=== PATIENT | male | born 1995 | race Hispanic/Latino ===

== ENCOUNTER 2018-01-26 20:00 | Emergency (ER) | payer SELFPAY ==
[2018-01-26] MEDS ORDERED: IBUPROFEN 200 MG TAB ONE (20:18)
[2018-01-26] MEDS ORDERED: IBUPROFEN 400 MG TABLET ONE (20:18)
== END 2018-01-26 21:09 | disposition home or self-care (01) ==
LOC: EDH 20:00
DX: K40.90 Unilateral inguinal hernia, without obstruction or gangrene, not specified as recurrent (principal); Z90.49 Acquired absence of other specified parts of digestive tract; Z72.0 Tobacco use
CPT/HCPCS: 76870

== ENCOUNTER 2021-03-10 21:27 | Emergency (ER) | payer SELFPAY ==
[2021-03-10] MEDS ORDERED: HYDROCODONE/ACETAMINOPHEN 10/325 MG TAB ONE (21:47)
== END 2021-03-10 22:37 | disposition home or self-care (01) ==
LOC: EDH 21:27
DX: S50.01XA Contusion of right elbow, initial encounter (principal); Z72.0 Tobacco use; W18.39XA Other fall on same level, initial encounter; Y93.51 Activity, roller skating (inline) and skateboarding; Y92.89 Other specified places as the place of occurrence of the external cause; Y99.8 Other external cause status
CPT/HCPCS: 29105; 73080